=== PATIENT | female | born 1985 | race Hispanic/Latino ===

== ENCOUNTER 2017-12-10 19:18 | Emergency (ER) | payer SELFPAY ==
[2011-09-27 08:01] VITALS: BP 114/65
[2017-12-10] MEDS ORDERED: ACETAMINOPHEN 500 MG TAB ONE (20:56)
[2017-12-10 21:01] LABS: Urine Amorphous Sediment 1+ /HPF (NONE SEEN); Urine Bacteria 20-50 /HPF (<20); Urine Culture Reflex Order NOT NEEDED; Urine Mucus 1+ /HPF (NONE SEEN)
[2017-12-10 21:02] LABS: Urine Coarse Granular Casts 0-5 /LPF (NONE SEEN)
[2017-12-10 21:02] LABS: Urine Blood TRACE (NEG); Urine Glucose NEGATIVE (NEG); Urine Protein NEGATIVE (NEG); Urine pH 6.5 (5.0-7.0)
--- NOTE | 2017-12-10 21:09 | RAD REPORT ---
EXAM DESCRIPTION: CT - Head Brain Wo Cont - 12/10/2017 8:43 pm CLINICAL HISTORY: Headache, fever COMPARISON: None. TECHNIQUE: Axial 5 mm thick images of the head were obtained without IV contrast. All CT scans are performed using dose optimization technique as appropriate and may include automated exposure control or mA/KV adjustment according to patient size. FINDINGS: No intracranial hemorrhage, mass, edema or shift of mid-line structures. No acute infarcti on changes seen. No abnormal extra-axial fluid collections. Ventricles are normal. Mastoid air cells and visualized portions of the paranasal sinuses are clear. No acute bony findings. IMPRESSION: Negative non-contrast CT head examination.
[2017-12-10] MEDS ORDERED: KETOROLAC 30 MG/ML INJ ONE (21:50)
--- NOTE | 2017-12-10 23:01 | EDPHYS ---
Physician Documentation [facility] Name: Eleonora Cunningham Age: 32 yrs Sex: Female : 1985 Arrival Date: 12/10/2017 Time: 19:26 Bed 15 Private MD: ED Physician Will Arias HPI: 12/10 23:00 This 32 yrs old Female presents to ER via Ambulatory with complaints of Fever, pm1 Headache. 23:00 Onset: The symptoms/episode began/occurred 3 day(s) ago. pm1 23:00 Modifying factors: there are no obvious modifying factors. Associated signs and pm1 symptoms: Pertinent positives: headache, Burning/Warmth with urination, frequency, Pertinent negatives: abdominal pain, backache, nausea, skin rash, shortness of breath, vomiting. The patient has not recently seen a physician. 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 - Social history:: Smoking status: Patient/guardian denies using tobacco. - Ebola Screening: : Patient denies travel to an Ebola-affected area in the 21 days before illness onset. ROS: 23:00 Eyes: Negative for injury, pain, redness, and discharge, ENT: Negative for injury, pm1 pain, and discharge, Neck: Negative for injury, pain, and swelling, Cardiovascular: Negative for chest pain, palpitations, and edema, Respiratory: Negative for shortness of breath, cough, wheezing, and pleuritic chest pain, Abdomen/GI: Negative for abdominal pain, nausea, vomiting, diarrhea, and constipation, Back: Negative for injury and pain. 23:00 MS/Extremity: Negative for injury and deformity, Skin: Negative for injury, rash, and discoloration, Neuro: Negative for headache, weakness, numbness, tingling, and seizure. 23:00 Constitutional: Positive for fever, Negative for poor PO intake. 23:00 : Positive for urinary frequency, burning with urination, Negative for flank pain. Exam: 23:00 Constitutional: This is a well developed, well nourished patient who is awake, alert, pm1 and in no acute distress. Head/Face: Normocephalic, atraumatic. Eyes: Pupils equal round and reactive to light, extra-ocular motions intact. Lids and lashes normal. Conjunctiva and sclera are non-icteric and not injected. Cornea within normal limits. Periorbital areas with no swelling, redness, or edema. ENT: Nares patent. No nasal discharge, no septal abnormalities noted. Tympanic membranes are normal and external auditory canals are clear. Oropharynx with no redness, swelling, or masses, exudates, or evidence of obstruction, uvula midline. Mucous membranes moist. Neck: Trachea midline, no thyromegaly or masses palpated, and no cervical lymphadenopathy. Supple, full range of motion without nuchal rigidity, or vertebral point tenderness. No Meningismus. Chest/axilla: Normal chest wall appearance and motion. Nontender with no deformity. No lesions are appreciated. Cardiovascular: Regular rate and rhythm with a normal S1 and S2. No gallops, murmurs, or rubs. Normal PMI, no JVD. No pulse deficits. Respiratory: Lungs have equal breath sounds bilaterally, clear to auscultation and percussion. No rales, rhonchi or wheezes noted. No increased work of breathing, no retractions or nasal flaring. Abdomen/GI: Soft, non-tender, with normal bowel sounds. No distension or tympany. No guarding or rebound. No evidence of tenderness throughout. Back: No spinal tenderness. No costovertebral tenderness. Full range of motion. Skin: Warm, dry with normal turgor. Normal color with no rashes, no lesions, and no evidence of cellulitis. MS/ Extremity: Pulses equal, no cyanosis. Neurovascular intact. Full, normal range of motion. 23:00 Neuro: Orientation: is normal, Memory: is normal, Motor: moves all fours, strength is normal, strength is 5/5 in all extremities, Sensation: is normal, no obvious gross deficits, Gait: is steady, at a normal pace, without difficulty. Vital Signs: 19:35 BP 125 / 77; Pulse 122; Resp 20; Temp 99.3(TE); Pulse Ox 100% on R/A; Weight 88.9 kg aj1 (R); Height 4 ft. 11 in. (149.86 cm); Pain 10/10; 20:52 BP 118 / 76; Pulse 113; Resp 20; Temp 102.7; Pulse Ox 100% on R/A; oe 21:41 BP 102 / 70; Pulse 111; Resp 18; Temp 100.8(O); Pulse Ox 100% on R/A; Pain 6/10; ak1 22:31 BP 100 / 58; Pulse 99; Resp 18; Temp 99.3(O); Pulse Ox 98% on R/A; Pain 4/10; ak1 19:35 Body Mass Index 39.59 (88.90 kg, 149.86 cm) aj1 NIH Stroke Scale Scores: 20:21 NIHSS Score: 0 ak1 MDM: 19:56 Patient medically screened. pm1 22:58 Data reviewed: vital signs. Data interpreted: Pulse oximetry: on room air is 98 %. pm1 Interpretation: normal. Counseling: I had a detailed discussion with the patient and/or guardian regarding: the historical points, exam findings, and any diagnostic results supporting the discharge/admit diagnosis, lab results, radiology results, the need for outpatient follow up, to return to the emergency department if symptoms worsen or persist or if there are any questions or concerns that arise at home. 12/10 20:24 Order name: Urine Dipstick--Ancillary (enter results); Complete Time: 21:47 12/10 20:24 Order name: Urine --Ancillary (enter results); Complete Time: 21:47 12/10 20:24 Order name: Urine Microscopic Only; Complete Time: 21:47 [facility] 12/10 20:24 Order name: Urine Culture [facility] 12/10 20:32 Order name: CT Head Brain wo Cont; Complete Time: 21:47 pm1 Administered Medications: 20:58 Drug: Tylenol 1000 mg Route: PO; ak1 21:39 Follow up: Response: No adverse reaction ak1 21:53 Drug: TORadol 60 mg Route: IM; Site: right gluteus; ak1 22:22 Follow up: Response: No adverse reaction ak1 23:10 Drug: Rocephin (cefTRIAXone) 1 grams Route: IM; Site: left gluteus; ak1 23:17 Follow up: Response: No adverse reaction ak1 Point of Care Testin:33 No glucose ordered ak1 Ranges: Critical Glucose Levels:Adult <50 mg/dl or >400 mg/dl <40 mg/dl or >180 mg/dl Disposition: 12/11 15:38 Co-signature as Attending Physician, Will Arias MD I agree with the assessment and olu plan of care. Chart complete. Disposition: 12/10/17 23:01 Discharged to Home. Impression: Headache, Urinary tract infection, site not specified. - Condition is Stable. - Discharge Instructions: General Headache Without Cause, Urinary Tract Infection. - Prescriptions for Tylenol- Codeine #3 300-30 mg Oral Tablet - take 2 tablets by ORAL route every 6 hours As needed; 20 tablet. Bactrim DS 800- 160 mg Oral Tablet - take 1 tablet by ORAL route every 12 hours for 10 days; 20 tablet. - Medication Reconciliation Form, Thank You Letter, Antibiotic Education, Prescription Opioid Use form. - Follow up: Emergency Department; When: As needed; Reason: Worsening of condition. Follow up: Private Physician; When: 2 - 3 days; Reason: Recheck today's complaints, Continuance of care, Re-evaluation by your physician. - Problem is new. - Symptoms have improved. NIH Stroke Scale - NIH Stroke Score Date: 12/10/2017 Time: 20:21 Total Score = 0 1a. Level of Consciousness (LOC) - 0(Alert) 1b. Level of Consciousness (LOC) (Year \T\ Age) - 0(Both) 1c. LOC Commands (Open \T\ Closes Eyes/Bid Writer) - 0(Both) 2. Best Gaze (Lateral Gaze Paresis) - 0(Normal) 3. Visual Field Loss - 0(No visual loss) 4. Facial Palsy - 0(Normal) 5a. Left Arm: Motor (10-second hold) - 0(No drift) 5b. Right Arm: Motor (10-second hold) - 0(No drift) 6a. Left Leg: Motor (5-second hold - always test supine) - 0(No drift) 6b. Right Leg: Motor (5-second hold - always test supine) - 0(No drift) 7. Limb Ataxia (finger/nose \T\ heel/paulino - test with eyes open) - 0(Absent) 8. Sensory Loss (pinprick arms/legs/face) - 0(Normal) 9. Best Language: Aphasia (description/naming/reading) - 0(No aphasia) 10. Dysarthria (speech clarity - read or repeat words) - 0(Normal) 11. Extinction and Inattention (visual/tactile/auditory/spatial/personal) - 0(No abnormality) Initials: ak1 Signatures: Dispatcher [employer] EDRatna Carrasco RN RN aj1 Will Arias MD MD cha Krenek, Amber RN RN ak1 Freddie Oconnell, TRAFFIC CHIEF TRAFFIC CHIEF pm1 Corrections: (The following items were deleted from the chart) 12/10 23:31 23:01 12/10/2017 23:01 Discharged to Home. Impression: Headache; Urinary tract ak1 infection, site not specified. Condition is Stable. Forms are Medication Reconciliation Form, Thank You Letter, Antibiotic Education, Prescription Opioid Use. Follow up: Emergency Department; When: As needed; Reason: Worsening of condition. Follow up: Private Physician; When: 2 - 3 days; Reason: Recheck today's complaints, Continuance of care, Re-evaluation by your physician. Problem is new. Symptoms have improved. pm1
--- NOTE | 2017-12-10 23:01 | ER ---
Nurse's Notes [facility] Name: Eleonora Cunningham Age: 32 yrs Sex: Female : 1985 Arrival Date: 12/10/2017 Time: 19:26 Bed 15 Private MD: Diagnosis: Headache;Urinary tract infection, site not specified Presentation: 12/10 19:30 Presenting complaint: Patient states: "I've been having a headache and fever since aj1 Friday. Its hurting really bad behind my eyes" Denies cough, congestion, diarrhea. Reports nausea, vomiting. Transition of care: patient was not received from another setting of care. 19:30 Method Of Arrival: Ambulatory aj1 19:34 Onset of symptoms was December 06, 2017. Risk Assessment: Do you want to hurt yourself or aj1 someone else? Patient reports no desire to harm self or others. Initial Sepsis Screen: Does the patient meet any 2 criteria? No. Patient's initial sepsis screen is negative. Does the patient have a suspected source of infection? No. Patient's initial sepsis screen is negative. Care prior to arrival: None. 19:34 Acuity: VALENTIN 3 aj1 20:23 No acute neurological deficit is noted. Pre-hospital glucose is not applicable to this ak1 patient. Triage Assessment: 19:35 The onset of the patients symptoms was December 06, 2017 at 00:00. General: Appears in no aj1 apparent distress. uncomfortable, Behavior is calm, cooperative, appropriate for age. Pain: Complains of pain in top of head, right eye, left eye, right muslim and left muslim Pain does not radiate. Pain currently is 10 out of 10 on a pain scale. Quality of pain is described as stabbing, Pain began 2-3 days ago. Is continuous. Neuro: Level of Consciousness is awake, alert, obeys commands, Oriented to person, place, time, situation, Moves all extremities. Full function Gait is steady, Speech is normal, Facial symmetry appears normal, Reports dizziness, headache. Respiratory: Airway is patent Respiratory effort is even, unlabored, Respiratory pattern is regular, symmetrical. Derm: Skin is pink, warm \\T\\ dry. normal. 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 Patient has no stroke like symptoms aj1 Historical: - Allergies: 19:35 No Known Allergies; aj1 - Home Meds: 19:35 None [Active]; aj1 - PMHx: 19:35 Asthma; Kidney stones; aj1 - PSHx: 19:35 ; Tonsillectomy; aj1 - Immunization history:: Flu vaccine is not up to date. - Social history:: Smoking status: Patient/guardian denies using tobacco. - Ebola Screening: : Patient denies travel to an Ebola-affected area in the 21 days before illness onset. Screenin:21 Abuse screen: Denies threats or abuse. Denies injuries from another. Nutritional ak1 screening: No deficits noted. Tuberculosis screening: No symptoms or risk factors identified. Fall Risk None identified. Assessment: 20:21 Patient has been NPO before screening. The patient is alert, and able to follow ak1 commands. The patient does not exhibit slurred or garbled speech. The patient is not exhibiting difficulty speaking. The patient does not exhibit difficulty understanding words. The patient is able to swallow own secretions with no drooling or need for suction. Patient tolerated one teaspoon of water. No drooling, immediate coughing, gurgling, or clearing of the throat was noted. The patient tolerated 90mL of water. No drooling, immediate coughing, gurgling, or clearing of the throat was noted. The patient passed the bedside swallow screening. Oral medications may be given as ordered. Contact Physician for further diet orders. Provider notified of bedside swallow screening results: Freddie Oconnell HYDRO GENERATION SUPERVISOR. General: Appears in no apparent distress. Behavior is calm, cooperative. Pain: Complains of pain in headache. Neuro: Level of Consciousness is awake, alert, obeys commands, Oriented to person, place, time, situation, Special Weapons And Tactics Officer are equal bilaterally Moves all extremities. Gait is steady, Speech is normal, Facial symmetry appears normal, Pupils are PERRLA. Cardiovascular: No deficits noted. Respiratory: No deficits noted. GI: No signs and/or symptoms were reported involving the gastrointestinal system. : No signs and/or symptoms were reported regarding the genitourinary system. EENT: No signs and/or symptoms were reported regarding the EENT system. EENT: No signs and/or symptoms were reported regarding the EENT system. Derm: No signs and/or symptoms reported regarding the dermatologic system. Musculoskeletal: No signs and/or symptoms reported regarding the musculoskeletal system. 22:31 Reassessment: Patient appears in no apparent distress at this time. Patient is alert, ak1 oriented x 3, equal unlabored respirations, skin warm/dry/pink. Patient states feeling better. Patient states symptoms have improved. ERP notified of pt pain improved. . 22:34 T-PA (Activase) Screening: Contraindications: Other: No TPA needed, no stroke s/s. ak1 23:17 Reassessment: Patient appears in no apparent distress at this time. Patient is alert, ak1 oriented x 3, equal unlabored respirations, skin warm/dry/pink. Patient states feeling better. Patient states symptoms have improved. Vital Signs: 19:35 BP 125 / 77; Pulse 122; Resp 20; Temp 99.3(TE); Pulse Ox 100% on R/A; Weight 88.9 kg aj1 (R); Height 4 ft. 11 in. (149.86 cm); Pain 10/10; 20:52 BP 118 / 76; Pulse 113; Resp 20; Temp 102.7; Pulse Ox 100% on R/A; oe 21:41 BP 102 / 70; Pulse 111; Resp 18; Temp 100.8(O); Pulse Ox 100% on R/A; Pain 6/10; ak1 22:31 BP 100 / 58; Pulse 99; Resp 18; Temp 99.3(O); Pulse Ox 98% on R/A; Pain 4/10; ak1 19:35 Body Mass Index 39.59 (88.90 kg, 149.86 cm) aj1 NIH Stroke Scale Scores: 20:21 NIHSS Score: 0 ak1 ED Course: 19:26 Patient arrived in ED. es 19:34 Triage completed. aj1 19:35 Arm band placed on Patient placed in waiting room, Patient notified of wait time. aj1 19:55 Freddie Oconnell NP is PHCP. pm1 19:55 Will Arias MD is Attending Physician. pm1 20:21 Xuan Moreno, RN is Primary Nurse. ak1 20:21 Patient has correct armband on for positive identification. Bed in low position. Call ak1 light in reach. Side rails up X 1. Adult w/ patient. Pulse ox on. NIBP on. 20:[address] via wheelchair. kw1 20:43 CT completed. Patient tolerated procedure well. Patient moved back from CT. nj 20:43 CT Head Brain wo Cont In Process Unspecified. EDMS 22:34 No provider procedures requiring assistance completed. ak1 23:16 Patient did not have IV access during this emergency room visit. ak1 Administered Medications: 20:58 Drug: Tylenol 1000 mg Route: PO; ak1 21:39 Follow up: Response: No adverse reaction ak1 21:53 Drug: TORadol 60 mg Route: IM; Site: right gluteus; ak1 22:22 Follow up: Response: No adverse reaction ak1 23:10 Drug: Rocephin (cefTRIAXone) 1 grams Route: IM; Site: left gluteus; ak1 23:17 Follow up: Response: No adverse reaction ak1 Point of Care Testin:33 No glucose ordered ak1 Ranges: Outcome: 23:01 Discharge ordered by . pm1 23:16 Discharged to home ambulatory, with family. ak1 23:16 Condition: improved 23:16 Discharge instructions given to patient, Instructed on discharge instructions, follow up and referral plans. no drinking with medication, no driving heavy equipment, medication usage, safe sex practices, Demonstrated understanding of instructions, follow-up care, medications, Prescriptions given X 2. 23:31 Patient left the ED. ak1 NIH Stroke Scale - NIH Stroke Score Date: 12/10/2017 Time: 20:21 Total Score = 0 1a. Level of Consciousness (LOC) - 0(Alert) 1b. Level of Consciousness (LOC) (Year \\T\\ Age) - 0(Both) 1c. LOC Commands (Open \\T\\ Closes Eyes/Nuclear Equipment Operator) - 0(Both) 2. Best Gaze (Lateral Gaze Paresis) - 0(Normal) 3. Visual Field Loss - 0(No visual loss) 4. Facial Palsy - 0(Normal) 5a. Left Arm: Motor (10-second hold) - 0(No drift) 5b. Right Arm: Motor (10-second hold) - 0(No drift) 6a. Left Leg: Motor (5-second hold - always test supine) - 0(No drift) 6b. Right Leg: Motor (5-second hold - always test supine) - 0(No drift) 7. Limb Ataxia (finger/nose \\T\\ heel/paulino - test with eyes open) - 0(Absent) 8. Sensory Loss (pinprick arms/legs/face) - 0(Normal) 9. Best Language: Aphasia (description/naming/reading) - 0(No aphasia) 10. Dysarthria (speech clarity - read or repeat words) - 0(Normal) 11. Extinction and Inattention (visual/tactile/auditory/spatial/personal) - 0(No abnormality) Initials: akWilliams Addendum: 12/14/2017 07:25 Addendum: Culture Results: Positive urine culture. No further action required. iw Bacteria sensitive to prescribed antibiotic. Signatures: Dispatcher [employer] EDRatna Carrasco RN RN aj1 Kelly Williamson Irene, RN RN iw Xuan Moreno RN RN ak1 Freddie Oconnell, AVIS HYDRO GENERATION SUPERVISOR pm1 Matthias Sorenson [place] oe Wilhelm, Kimberly kw1
[2017-12-10] MEDS ORDERED: CEFTRIAXONE 1000 MG/VIAL ONE (23:08)
[2017-12-10] MEDS ORDERED: WATER FOR INJ,STERILE 10 ML ONE (23:08)
== END 2017-12-10 23:31 | disposition home or self-care (01) ==
LOC: ER 19:18
DX: N39.0 Urinary tract infection, site not specified (principal); J45.909 Unspecified asthma, uncomplicated
CPT/HCPCS: 70450; 81003; 81015; 81025; 87077; 87086; 87088; 87186; 96372; 99284

== ENCOUNTER 2018-04-07 13:23 | Emergency (ER) | payer SELFPAY ==
[2018-04-07] MEDS ORDERED: ACETAMINOPHEN 500 MG TAB ONE (13:43)
[2018-04-07] MEDS ORDERED: predniSONE 20 MG TAB ONE (13:46)
[2018-04-07] MEDS ORDERED: MAGNESIUM SULFATE 1 gm IVPB 1 GM/100 ML BAG IV ONE (13:46)
[2018-04-07] MEDS ORDERED: NA CHLORIDE 0.9% 1,000 ML ONE (13:46)
[2018-04-07 14:26] LABS: BUN Blood Urea Nitrogen 6 mg/dL (7-18); Bicarbonate 26 mmol/L (21-32); Glucose Level 146 mg/dL (74-106); Magnesium 2.2 mg/dL (1.8-2.4); Potassium 3.2 mmol/L (3.5-5.1); Sodium Level 139 mmol/L (136-145)
[2018-04-07 15:33] LABS: Absolute Lymphocytes (CBC) 1.6 K/uL (0.7-4.9); Basophils % 0.1 % (0-1.3); Eosinophils % 0.9 % (0-4.4); Hematocrit 34.8 % (36.0-45.0); Lymphocytes % 12.4 % (15.3-44.8); MCH 21.6 pg (27.0-35.0); MCV 67.7 fL (80-100); MPV 7.9 fL (7.6-11.3); Monocytes % 8.2 % (3.3-12.3); RBC Red Blood Cell Count 5.14 M/uL (3.86-4.86)
[2018-04-07 15:35] LABS: Blood Morphology Comment NOTED (NOT SEEN); Hypochromasia 1+; Platelet Estimate ADEQ; Urine White Blood Cell Casts OK
--- NOTE | 2018-04-07 15:46 | RAD REPORT ---
EXAM DESCRIPTION: Sandra Single View04/07/2018 3:02 pm CLINICAL HISTORY: Cough COMPARISON: 2012 FINDINGS: Interstitial pattern appears mildly prominent. . The heart is normal size IMPRESSION: Mild prominence of the pulmonary interstitial pattern may indicate mild pneumonitis/aty pical pneumonia
[2018-04-07] MEDS ORDERED: POTASSIUM 25 MEQ EFFERV TAB ONE (15:49)
--- NOTE | 2018-04-07 16:27 | ER ---
Nurse's Notes [facility] Name: Eleonora Cunningham Age: 32 yrs Sex: Female : 1985 Arrival Date: 04/07/2018 Time: 13:26 Bed 28 Private MD: None, None Diagnosis: Unspecified asthma with (acute) exacerbation;Acute upper respiratory infection, unspecified Presentation: 04/07 13:32 Presenting complaint: Patient states: cough, SOB, Headache, sore throat, fevers, ch started on Friday. I feel like I cannot breathe. Transition of care: patient was not received from another setting of care. Onset of symptoms was April 03, 2018. Risk Assessment: Do you want to hurt yourself or someone else? Patient reports no desire to harm self or others. Initial Sepsis Screen: Does the patient meet any 2 criteria? No. Patient's initial sepsis screen is negative. Does the patient have a suspected source of infection? No. Patient's initial sepsis screen is negative. Care prior to arrival: None. 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 - Social history:: Smoking status: Patient/guardian denies using tobacco. - Ebola Screening: : Patient negative for fever greater than or equal to 101.5 degrees Fahrenheit, and additional compatible Ebola Virus Disease symptoms Patient denies exposure to infectious person Patient denies travel to an Ebola-affected area in the 21 days before illness onset No symptoms or risks identified at this time. Screenin:07 Abuse screen: Denies threats or abuse. Nutritional screening: No deficits noted. la1 Tuberculosis screening: No symptoms or risk factors identified. Fall Risk None identified. Assessment: 14:06 General: Appears uncomfortable, Behavior is cooperative. Pain: Complains of pain in la1 headache. Neuro: Level of Consciousness is awake, alert, obeys commands, Oriented to person, place, time, situation. Cardiovascular: Capillary refill < 3 seconds Patient's skin is warm and dry. Respiratory: Airway is patent Trachea midline Respiratory effort is even, labored, Respiratory pattern is regular, tachypnea Breath sounds with wheezes bilaterally. GI: No signs and/or symptoms were reported involving the gastrointestinal system. : No signs and/or symptoms were reported regarding the genitourinary system. 14:15 Reassessment: Patient and/or family updated on plan of care and expected duration. Pain aj1 level reassessed. General: Appears uncomfortable, Behavior is calm, cooperative. Neuro: Level of Consciousness is awake, alert, obeys commands. Cardiovascular: Heart tones S1 S2 present Patient's skin is warm and dry. Respiratory: Airway is patent Respiratory effort is even, labored, Respiratory pattern is regular, tachypnea Breath sounds with wheezes bilaterally. GI: No signs and/or symptoms were reported involving the gastrointestinal system. : No signs and/or symptoms were reported regarding the genitourinary system. EENT: No signs and/or symptoms were reported regarding the EENT system. Derm: No signs and/or symptoms reported regarding the dermatologic system. Skin is pink, warm \T\ dry. normal. Musculoskeletal: No signs and/or symptoms reported regarding the musculoskeletal system. Circulation, motion, and sensation intact. 15:15 Reassessment: Patient appears in no apparent distress at this time. No changes from aj1 previously documented assessment. Patient and/or family updated on plan of care and expected duration. Pain level reassessed. Patient is alert, oriented x 3, equal unlabored respirations, skin warm/dry/pink. 16:03 Reassessment: Patient appears in no apparent distress at this time. No changes from aj1 previously documented assessment. Patient and/or family updated on plan of care and expected duration. Pain level reassessed. Patient is alert, oriented x 3, equal unlabored respirations, skin warm/dry/pink. 16:45 Reassessment: Patient states that she feels like she is getting short of breath again. aj1 Patient is concerned over being discharged. Breath sound with wheezes bilaterally. Notified EBEN Liu of patient complaint. Order received . 16:55 Reassessment: Upon re-entering patient's room patient appears anxious, tachypnic, aj1 states that she feels like she can't breath. Breath sound with wheezes bilaterally. Started breathing treatment, and coached patient through deep breathing techniques. Respiratory rate 24 prior to leaving the room. Patient with call eubanks in hand, instructed to notify staff if shortness of breath returnes. 17:40 Reassessment: EBEN Liu at bedside. aj1 17:51 Reassessment: Patient appears in no apparent distress at this time. No changes from aj1 previously documented assessment. Patient and/or family updated on plan of care and expected duration. Pain level reassessed. Patient is alert, oriented x 3, equal unlabored respirations, skin warm/dry/pink. Patient states that she is feeling better and she is ready to be discharged. Vital Signs: 13:34 BP 124 / 70; Pulse 118; Resp 32; Temp 100.7; Pulse Ox 100% on R/A; Weight 91.63 kg; ch Height 4 ft. 11 in. (149.86 cm); Pain 8/10; 14:15 BP 124 / 70; Pulse 107; Resp 28; Pulse Ox 100% on 2 lpm NC; aj1 15:15 BP 122 / 68; Pulse 99; Resp 20; Temp 99.7(O); Pulse Ox 100% on 2 lpm NC; aj1 16:03 BP 111 / 69; Pulse 100; Resp 20; Pulse Ox 100% on 2 lpm NC; aj1 17:03 BP 107 / 52; Pulse 87; Resp 24; Pulse Ox 100% on Nebulizer Mask; aj1 13:34 Body Mass Index 40.80 (91.63 kg, 149.86 cm) ED Course: 13:26 Patient arrived in ED. mr 13:26 None, None is Private Physician. mr 13:32 Will Hicks PA is PHCP. la1 13:32 Will Arias MD is Attending Physician. la1 13:33 Triage completed. ch 13:34 Arm band placed on left wrist. Patient placed in an exam room, on a stretcher, report ch given to Shailesh De Jesus 13:45 Shailesh Epstein, RN is Primary Nurse. la1 13:50 Initial lab(s) drawn, by ED staff, sent to lab. First set of blood cultures drawn by ED jp3 staff, Second set of blood cultures drawn by ED staff. 13:58 EKG done, by claim technician. reviewed by Will TREADWELL. 3 14:07 No provider procedures requiring assistance completed. Inserted saline lock: 20 gauge la1 in right antecubital area, using aseptic technique. Blood collected. 14:30 Patient has correct armband on for positive identification. aj1 14:32 Feliciano Schofield MD is Attending Physician. cp 15:00 Throat Culture Sent. aj1 15:02 XRAY Chest (1 view) In Process Unspecified. EDMS 17:48 Urine collected: clean catch specimen, clear, ashley colored. jp3 17:53 IV discontinued, intact, bleeding controlled, No redness/swelling at site. Pressure aj1 dressing applied. 17:59 Primary Nurse role handed off by Shailesh Epstein RN hb Administered Medications: 14:07 Drug: Albuterol - atroVENT (3:1) (2.5 mg - 0.5 mg) 3 ml Route: Nebulizer; la1 14:30 Follow up: Response: No adverse reaction aj1 15:01 Follow up: Response: No adverse reaction aj1 14:07 Drug: Tylenol 1000 mg Route: PO; la1 15:10 Follow up: Response: No adverse reaction aj1 14:07 Drug: NS 0.9% 1000 ml Route: IV; Rate: 1 bolus; Site: right antecubital; la1 15:00 Follow up: IV Status: Completed infusion; IV Intake: 1000ml aj1 14:07 Drug: Magnesium Sulfate 1 grams Route: IVPB; Infused Over: 1 hrs; Site: right la1 antecubital; 15:07 Follow up: IV Status: Completed infusion; IV Intake: 100ml aj1 14:07 Drug: predniSONE 60 mg Route: PO; la1 15:00 Follow up: Response: No adverse reaction aj1 15:51 Drug: Potassium Effervescent Tablet 50 mEq Route: PO; aj1 16:50 Follow up: Response: No adverse reaction aj1 17:01 Drug: DuoNeb (3:1) (2.5 mg - 0.5 mg) 3 ml Route: Nebulizer; aj1 17:58 Follow up: Response: No adverse reaction aj1 Intake: 15:00 IV: 1000ml; Total: 1000ml. aj1 15:07 IV: 100ml; Total: 1100ml. aj1 Outcome: 16:26 Discharge ordered by . cp 17:53 Discharged to home ambulatory. aj1 17:53 Condition: good 17:53 Discharge instructions given to patient, Instructed on discharge instructions, follow up and referral plans. medication usage, Demonstrated understanding of instructions, follow-up care, medications, Prescriptions given X 4. 17:59 Patient left the ED. aj1 18:01 Patient left the ED. Signatures: Dispatcher [employer] EDMS Yamile Good, Ratna Rod RN, ch, RN RN aj1 Verenice Yan, Shailesh RN RN la1 Will Hicks PA PA cp Baxter, Heather, RN RN Jodi Franklin sm3 Shahzad Mckeon jp3
--- NOTE | 2018-04-07 16:27 | EDPHYS ---
Physician Documentation [facility] Name: Eleonora Cunningham Age: 32 yrs Sex: Female : 1985 Arrival Date: 04/07/2018 Time: 13:26 Bed 28 Private MD: None, None ED Physician Feliciano Schofield HPI: 04/07 13:45 This 32 yrs old Female presents to ER via Ambulatory with complaints of Asthma cp Exacerbation, Headache, Fever. 13:45 The patient or guardian reports cough, that is intermittent. cp 13:45 Onset: The symptoms/episode began/occurred last week. Associated signs and symptoms: cp Pertinent positives: fever, sore throat, headache, Pertinent negatives: chest pain, diarrhea, vomiting. Severity of symptoms: in the emergency department the symptoms are unchanged despite home interventions. 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 - Social history:: Smoking status: Patient/guardian denies using tobacco. - Ebola Screening: : Patient negative for fever greater than or equal to 101.5 degrees Fahrenheit, and additional compatible Ebola Virus Disease symptoms Patient denies exposure to infectious person Patient denies travel to an Ebola-affected area in the 21 days before illness onset No symptoms or risks identified at this time. ROS: 13:50 Constitutional: Positive for fever, Negative for body aches, chills, poor PO intake. cp 13:50 Eyes: Negative for injury, pain, redness, and discharge. cp 13:50 ENT: Positive for sore throat, Negative for drainage from ear(s), ear pain, sinus pain, cp difficulty swallowing, difficulty handling secretions. 13:50 Cardiovascular: Negative for chest pain, edema. 13:50 Respiratory: Positive for cough, shortness of breath, wheezing. 13:50 Abdomen/GI: Negative for abdominal pain, nausea, vomiting, and diarrhea, anorexia. 13:50 : Negative for urinary symptoms. 13:50 Skin: Negative for cellulitis, rash. 13:50 Neuro: Positive for headache, Negative for altered mental status, weakness. 13:50 All other systems are negative. Exam: 13:55 ECG was reviewed by the Attending Physician. cp 13:58 Constitutional: The patient appears in no acute distress, alert, awake, cp non-diaphoretic, non-toxic, well developed, well nourished, febrile. 13:58 Head/Face: Normocephalic, atraumatic. Eyes: Pupils equal round and reactive to light, cp extra-ocular motions intact. Lids and lashes normal. Conjunctiva and sclera are non-icteric and not injected. Cornea within normal limits. Periorbital areas with no swelling, redness, or edema. ENT: Nares patent. No nasal discharge, no septal abnormalities noted. Tympanic membranes are normal and external auditory canals are clear. Oropharynx with no redness, swelling, or masses, exudates, or evidence of obstruction, uvula midline. Mucous membranes moist. 13:58 Neck: ROM/movement: is normal, is supple, without pain, no range of motions limitations, no meningismus, no nuchal rigidity, Lymph nodes: no appreciated lymphadenopathy. 13:58 Chest/axilla: Inspection: normal, Palpation: is normal, no crepitus, no tenderness. 13:58 Cardiovascular: Rate: tachycardic, Rhythm: regular, Pulses: Pulses are 2+ in right radial artery and left radial artery. Edema: is not appreciated, JVD: is not appreciated. 13:58 Respiratory: the patient does not display signs of respiratory distress, Respirations: labored breathing, that is mild, intercostal retractions, are absent, splinting, is not noted, tachypnea, that is mild, Breath sounds: stridor, is not appreciated, + upper airway congestion. wheezing: that is mild, is heard diffusely. 13:58 Abdomen/GI: Inspection: abdomen appears normal, Bowel sounds: active, all quadrants, Palpation: abdomen is soft and non-tender, in all quadrants, rebound tenderness, is not appreciated, voluntary guarding, is not appreciated, involuntary guarding, is not appreciated. 13:58 Back: pain, is absent, ROM is normal. 13:58 Skin: cellulitis, is not appreciated, no rash present. 13:58 Neuro: Orientation: to person, place \T\ time. Mentation: is normal, Cerebellar function: is grossly normal, Motor: moves all fours, strength is normal, Sensation: no obvious gross deficits. Vital Signs: 13:34 BP 124 / 70; Pulse 118; Resp 32; Temp 100.7; Pulse Ox 100% on R/A; Weight 91.63 kg; ch Height 4 ft. 11 in. (149.86 cm); Pain 8/10; 14:15 BP 124 / 70; Pulse 107; Resp 28; Pulse Ox 100% on 2 lpm NC; aj1 15:15 BP 122 / 68; Pulse 99; Resp 20; Temp 99.7(O); Pulse Ox 100% on 2 lpm NC; aj1 16:03 BP 111 / 69; Pulse 100; Resp 20; Pulse Ox 100% on 2 lpm NC; aj1 17:03 BP 107 / 52; Pulse 87; Resp 24; Pulse Ox 100% on Nebulizer Mask; aj1 13:34 Body Mass Index 40.80 (91.63 kg, 149.86 cm) ch MDM: 13:34 Patient medically screened. olu 14:00 Differential diagnosis: bronchitis, flu, strep throat, pneumonia, asthma exacerbation. cp 16:25 Data reviewed: vital signs, nurses notes, lab test result(s), EKG, radiologic studies, cp plain films. 16:25 Test interpretation: by ED physician or midlevel provider: ECG, plain radiologic cp studies. 17:55 Response to treatment: the patient's symptoms have markedly improved after treatment, cp VSS. Cough, fever, SOB markedly improved. Will discharge to home for continued monitoring. 04/07 13:38 Order name: Blood Culture Adult (2) cp 04/07 13:38 Order name: Influenza Screen (a \T\ B); Complete Time: 14:55 cp 04/07 14:55 Interpretation: Reviewed. cp 04/07 13:38 Order name: CBC with Diff; Complete Time: 15:44 cp 04/07 15:45 Interpretation: Normal except: WBC 12.7; RBC 5.14; HGB 11.1; HCT 34.8; MCV 67.7; MCH cp 21.6; MCHC 31.9; RDW 15.7; LEONIDAS% 78.4; LYM% 12.4; NEUT A 10.0. 04/07 13:38 Order name: BMP; Complete Time: 14:31 cp 04/07 14:31 Interpretation: Normal except: K 3.2; GLUC 146; BUN 6. cp 04/07 13:38 Order name: Procalcitonin; Complete Time: 14:55 cp 04/07 14:55 Interpretation: Procalcitonin < 0.05; Reviewed. 04/07 13:38 Order name: Magnesium; Complete Time: 14:31 cp 04/07 13:38 Order name: Strep; Complete Time: 14:55 cp 04/07 14:55 Interpretation: Reviewed. 04/07 14:01 Order name: XRAY Chest (1 view); Complete Time: 15:50 cp 04/07 15:50 Interpretation: Report review. 04/07 14:42 Order name: Throat Culture EDNE 04/07 15:34 Order name: CBC Smear Scan; Complete Time: 15:44 EDNE 04/07 18:01 Order name: Urine Dipstick--Ancillary (enter results) 04/07 18:01 Order name: Urine --Ancillary (enter results) 04/07 13:38 Order name: Urine Dipstick-Ancillary (obtain specimen); Complete Time: 17:48 cp 04/07 13:38 Order name: Urine Test (obtain specimen); Complete Time: 17:48 cp 04/07 13:38 Order name: EKG; Complete Time: 13:39 cp 04/07 13:38 Order name: EKG - Nurse/Tech; Complete Time: 14:07 cp 04/07 15:34 Order name: Vital Signs: please update to include temp; Complete Time: 16:00 cp EC:55 Rate is 118 beats/min. Rhythm is regular. WA interval is normal. QRS interval is cp normal. QT interval is normal. Interpreted by me. Reviewed by me. Administered Medications: 14:07 Drug: Albuterol - atroVENT (3:1) (2.5 mg - 0.5 mg) 3 ml Route: Nebulizer; la1 14:30 Follow up: Response: No adverse reaction aj1 15:01 Follow up: Response: No adverse reaction aj1 14:07 Drug: Tylenol 1000 mg Route: PO; la1 15:10 Follow up: Response: No adverse reaction aj1 14:07 Drug: NS 0.9% 1000 ml Route: IV; Rate: 1 bolus; Site: right antecubital; la1 15:00 Follow up: IV Status: Completed infusion; IV Intake: 1000ml aj1 14:07 Drug: Magnesium Sulfate 1 grams Route: IVPB; Infused Over: 1 hrs; Site: right la1 antecubital; 15:07 Follow up: IV Status: Completed infusion; IV Intake: 100ml aj1 14:07 Drug: predniSONE 60 mg Route: PO; la1 15:00 Follow up: Response: No adverse reaction aj1 15:51 Drug: Potassium Effervescent Tablet 50 mEq Route: PO; aj1 16:50 Follow up: Response: No adverse reaction aj1 17:01 Drug: DuoNeb (3:1) (2.5 mg - 0.5 mg) 3 ml Route: Nebulizer; aj1 17:58 Follow up: Response: No adverse reaction aj1 Disposition: 18:55 Co-signature as Attending Physician, Feliciano Schofield MD. rn Disposition: 04/07/18 16:26 Discharged to Home. Impression: Unspecified asthma with (acute) exacerbation, Acute upper respiratory infection, unspecified. - Condition is Stable. - Discharge Instructions: Asthma, Adult, Upper Respiratory Infection, Adult. - Prescriptions for Zithromax Z- Tavon 250 mg Oral Tablet - take 1 tablet by ORAL route as directed for 5 days Day 1 - take two (2) tablets one time. Day 2, 3, 4 , 5 take one (1) tablet once daily.; 6 tablet. Prednisone 20 mg Oral Tablet - take 2 tablet by ORAL route once daily for 5 days; 10 tablet. Albuterol Sulfate 90 mcg/actuation - inhale 1-2 puff by INHALATION route every 4-6 hours; 1 Inhaler. Guaifenesin AC 10- 100 mg/5 mL Oral Liquid - take 10 milliliter by ORAL route every 4 hours As needed; 240 milliliter. - Medication Reconciliation Form, Thank You Letter, Antibiotic Education, Prescription Opioid Use form. - Follow up: Private Physician; When: 2 - 3 days; Reason: Recheck today's complaints. - Problem is new. - Symptoms have improved. Signatures: Dispatcher [employer] EDMS Yamile Good RN RN ch Johnson, Angela, RN RN aj1 Will Arias MD MD cha Nieto, Roman, MD MD rn Attema, Lee, RN RN la1 Will Hicks PA PA cp Baxter, Gwendolyn, RN RN hb Corrections: (The following items were deleted from the chart) 17:59 16:26 04/07/2018 16:26 Discharged to Home. Impression: Unspecified asthma with (acute) aj1 exacerbation; Acute upper respiratory infection, unspecified. Condition is Stable. Forms are Medication Reconciliation Form, Thank You Letter, Antibiotic Education, Prescription Opioid Use. Follow up: Private Physician; When: 2 - 3 days; Reason: Recheck today's complaints. Problem is new. Symptoms have improved. cp 18:01 17:59 04/07/2018 16:26 Discharged to Home. Impression: Unspecified asthma with (acute) hb exacerbation; Acute upper respiratory infection, unspecified. Condition is Stable. Discharge Instructions: Asthma, Adult, Upper Respiratory Infection, Adult. Prescriptions for Zithromax Z-Tavon 250 mg Oral Tablet - take 1 tablet by ORAL route as directed for 5 days Day 1 - take two (2) tablets one time. Day 2, 3, 4 , 5 take one (1) tablet once daily.; 6 tablet, Prednisone 20 mg Oral Tablet - take 2 tablet by ORAL route once daily for 5 days; 10 tablet, Albuterol Sulfate 90 mcg/actuation - inhale 1-2 puff by INHALATION route every 4-6 hours; 1 Inhaler, Guaifenesin AC 10-100 mg/5 mL Oral Liquid - take 10 milliliter by ORAL route every 4 hours As needed; 240 milliliter. and Forms are Medication Reconciliation Form, Thank You Letter, Antibiotic Education, Prescription Opioid Use. Follow up: Private Physician; When: 2 - 3 days; Reason: Recheck today's complaints. Problem is new. Symptoms have improved. aj1
[2018-04-07] MEDS ORDERED: ALBUTEROL 2.5 MG/3 ML NEB SOL ONE (16:58)
[2018-04-07] MEDS ORDERED: IPRATROPIUM BROM 0.5MG/2.5ML ONE (16:58)
[2018-04-07 18:08] LABS: Urine Blood NEGATIVE (NEG); Urine Glucose NEGATIVE (NEG); Urine Protein NEGATIVE (NEG); Urine Specific Gravity 1.015 (1.005-1.030)
[2018-04-07 18:09] VITALS: O2SAT 100
[2018-04-07 18:13] VITALS: TEMP 99.7
[2018-04-07 18:15] VITALS: BP 107/52
--- NOTE | 2018-04-08 07:54 | EKG ---
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
== END 2018-04-07 18:01 | disposition home or self-care (01) ==
LOC: ER 13:23
DX: J45.901 Unspecified asthma with (acute) exacerbation (principal); J06.9 Acute upper respiratory infection, unspecified
CPT/HCPCS: 36415; 71045; 80048; 81003; 81025; 83735; 84145; 85025; 87040; 87070; 87081; 87804; 93005; 94640; 96365; 99284; J3475; J7030; J7512

== ENCOUNTER 2019-02-04 05:00 | Inpatient (IN) | payer OTHER ==
[2019-02-03 15:41] LABS: Absolute Lymphocytes (CBC) 2.3 K/uL (0.7-4.9); Basophils % 0.3 % (0-1.3); Hematocrit 34.4 % (36.0-45.0); Lymphocytes % 19.2 % (15.3-44.8); MPV 8.3 fL (7.6-11.3); RBC Red Blood Cell Count 4.58 M/uL (3.86-4.86)
[2019-02-03 15:48] LABS: Protime INR 0.96
[2019-02-03 15:51] LABS: Urine Appearance CLOUDY; Urine Bilirubin NEGATIVE (NEG); Urine Blood NEGATIVE (NEG); Urine Color YELLOW; Urine Glucose NEGATIVE (NEG); Urine Protein NEGATIVE (NEG); Urine Specific Gravity 1.025 (1.005-1.030); Urine Urobilinogen 0.2 mg/dL (0.2-1.0); Urine pH 6.5 (5.0-7.0)
[2019-02-03 16:00] LABS: Urine Bacteria >50 /HPF (<20); Urine Culture Reflex Order REFLEXED; Urine RBC NONE SEEN /HPF (NONE SEEN)
[2019-02-03 23:12] LABS: RPR (Rapid Plasma Reagin) NON-REACT (NON-REACT)
--- OUTSIDE RECORDS SUMMARY | 2019-02-04 05:02 | XMS REPORT ---
:1985 [facility] [address] Segura [address] [place] [id number] Care Team Providers Name Role Phone Unavailable Unavailable Unavailable Problems This patient has no known problems. Allergies, Adverse Reactions, Alerts This patient has no known allergies or adverse reactions. Medications This patient has no known medications.
[2019-02-04] MEDS ORDERED: Ringers Lactate 1,000 ML IV PRN (05:03)
[2019-02-04] MEDS ORDERED: NA CIT/CITRIC AC 30 ML ORAL UDC PO ONE (05:07)
[2019-02-04] MEDS ORDERED: FAMOTIDINE 20 MG/2 ML VIAL IV ONE (05:08)
[2019-02-04] MEDS ORDERED: CEFAZOLIN/SWI 2gm 2 GM/20 ML SYR ONE (05:44)
[2019-02-04 05:52] VITALS: BMI 44.4
[2019-02-04] MEDS ORDERED: METOCLOPRAMIDE 10 MG/2mL INJ IV SCH (06:00)
[2019-02-04] MEDS ORDERED: Ringers Lactate 1,000 ML IV SCH (06:00)
[2019-02-04] MEDS ORDERED: CEFAZOLIN 2 GM in NA CHLORIDE 0.9% 100 ML IVPB SCH (06:00)
[2019-02-04] MEDS ORDERED: MORPHINE SULFATE/PF 1 MG/ML (10 ML AMP) ONE (06:45)
[2019-02-04] MEDS ORDERED: OXYTOCIN 10 UNIT/ML ML IV ONE ×2 (06:46→08:16)
[2019-02-04] MEDS ORDERED: FENTANYL CITR 250 MCG/5 ML ONE (06:46)
[2019-02-04] MEDS ORDERED: D50W 25 GM/50 ML SYRINGE IV ONE ×2 (06:54→12:11)
[2019-02-04] MEDS ORDERED: Phenylephrine HCl 10 MG/ML 1 ML VIAL ONE (06:55)
[2019-02-04] MEDS ORDERED: METHYLERGONOVINE 0.2MG/ML AMP IM ONE (07:05)
[2019-02-04] MEDS ORDERED: CARBOPROST TROME 250 MCG/ML IM ONE (07:05)
[2019-02-04] MEDS ORDERED: EPHEDRINE SULF 50 MG/ML VIAL ONE (07:13)
[2019-02-04] MEDS ORDERED: NS 0.9% VIAL 10 ML ONE (07:17)
[2019-02-04] MEDS ORDERED: MIDAZOLAM HCL 2 MG/2 ML INJ ONE ×2 (07:58→08:15)
[2019-02-04] MEDS ORDERED: IBUPROFEN 200 MG TAB PO PRN (08:55)
[2019-02-04] MEDS ORDERED: BISACODYL 10 MG RECTAL SUPP RECT PRN (08:55)
[2019-02-04] MEDS ORDERED: KETOROLAC 30 MG/ML INJ IV PRN (08:55)
[2019-02-04] MEDS ORDERED: DIPHENHYDRAMINE 25 MG TAB/CAP PO PRN (08:55)
[2019-02-04] MEDS ORDERED: ONDANSETRON 4 MG/2 ML VIAL IV PRN (08:55)
[2019-02-04] MEDS ORDERED: Oxycodone HCl/Acetaminophen 1 TAB TAB PO PRN (08:55)
[2019-02-04] MEDS ORDERED: KETOROLAC 30 MG/ML INJ IM PRN (08:55)
[2019-02-04] MEDS ORDERED: ONDANSETRON 4 MG (ODT) TAB PO PRN (08:55)
[2019-02-04] MEDS ORDERED: ACETAMINOPHEN 500 MG TAB PO PRN ×2 (08:55)
[2019-02-04] MEDS ORDERED: OXYTOCIN/LR 20 UNIT/1,000 ML BAG IV SCH (09:00)
[2019-02-04] MEDS ORDERED: CEFAZOLIN/SWI 1gm 1 GM/10 ML SYR IV SCH (09:45)
[2019-02-04] MEDS ORDERED: CEFAZOLIN/SWI 2gm 2 GM/20 ML SYR IV SCH (10:30)
[2019-02-04] MEDS ORDERED: Ringers Lactate 2,000 ML IV ONE (12:26)
--- NOTE | 2019-02-04 12:51 | OP ---
Surgeon: Kenan Madsen MD Halftone Operator: Yg Ku M.D. Indications: 33-year-old, 3, para 2, 2 previous C-sections. Patient also noted to be diabet ic during the . Full preoperative counseling concerning procedure and possible complication s including infection, blood loss, anesthetic complications, injury to bladder, bowel, ureter, postop erative complications, clots in legs, pneumonia. The patient knows fully well this does not constitu te all the possible problems that could occur during or following surgery. Spinal block anesthesia b y Dr. Lang. Description Of Procedure: Time-out was performed. After prepping and draping, a Pfannenstiel incisi on was created over previous incision site. The incision was carried to the fascia. There was signi ficant scarring, very dense tissue. Anterior and posterior fascial plane were developed with both bl unt and sharp dissection. Underlying rectus muscle was . Peritoneal defect was encountered and expanded upon. Dense adhesions were noted. Transverse incision was created. A 7 pound 15 ounc e male infant was delivered. First attempt with a Kiwi suction and then application of forceps resul kaye in delivery of the baby. Dr. Lang will sign Apgars. Cord blood specimen was obtained. Placenta was removed manually. Uterus cleared of clot and blood and exteriorized. Cervical os dilated with ring clamp. Uterus closed with 1 chromic 2 layers, then [id number] stitches for complete hemost asis along the suture line. Because of the dense the lower uterine incision adhesions and thin lower uterine segment which was really not assessable, the decision was made to proceed with tubal ligatio n in the patient's best interest. Bilateral tubal was performed, modified Ton. Each tube being kinked in the midportion, triply tied with 2-0 plain. Segment of tube removed and tubal lumen which were exposed were fulgurated. Uterus was replaced in peritoneal cavity. Gutters were cleared of robyn t and blood. Tubal ligation sites were checked and noted to be intact. The rectus muscles were reap proximated using 0 Vicryl, numerous stitches necessary for closure and hemostasis. The fascia was cl osed with 1 PDS running from either angle to the midline. Subcutaneous tissue was closed with 2-0 pl ain, then absorbable corinne and metal corinne. Patient had been given 2 g of Ancef. Tolerated all procedures well, transferred back to her room in good condition. Final Diagnoses: 1.Term intrauterine . 2.Repeat section. 3.Dense adhesions. 4.Thin lower uterine segment, which is almost inaccessible. 5.Spinal block anesthesia. 6.Maternal diabetes. ALAINA/ZHANE Voice ID: [id number] Report ID: [id number]
--- NOTE | 2019-02-04 16:11 | PN ---
Incision slightly with oozing on the right side and in the middle. Area clean. Patient really still partly numb in the area. 5-6 new corinne placed. Bleeding stopped. More oozing than bleeding. Pr essure will be applied again. ALAINA/ZHANE Voice ID: [id number] Report ID: [id number]
[2019-02-04] MEDS ORDERED: D5LR 1,000 ML IV ONE (23:43)
[2019-02-05] MEDS: Oxycodone HCl/Acetaminophen 1 TAB TAB PO PRN ×2 (06:08→17:49)
--- NOTE | 2019-02-05 08:25 | PN ---
Postoperatively, patient is doing quite well. H and H with minimal change. Lochia is normal. Patisuzan nt has already ambulated. We will discontinue her Kwong and IV. She has no complaints or problems. We will begin p.o. intake. If all goes well, dismissal tomorrow. We have already gone over dismiss al instructions, but we will go over those again tomorrow. No post spinal block problems reported. ALAINA/ZHANE Voice ID: [id number] Report ID: [id number]
[2019-02-05] MEDS ORDERED: MAGNESIUM HYDROXIDE 8% 30 ML PO PRN (08:55)
[2019-02-06] MEDS: Oxycodone HCl/Acetaminophen 1 TAB TAB PO PRN ×2 (00:40→06:47)
[2019-02-06 07:29] VITALS: BP 121/61; TEMP 98.2
--- NOTE | 2019-02-06 22:32 | DS ---
Date of Discharge: 02/06/2019 A 33-year-old female, 3, para 2, for third section. Noted to be diabetic during her , 39 weeks' gestation. Underwent repeat section, spinal block anesthesia, deliver y of a 7-pound 15-ounce male . Initially vacuum suction and then forceps delivery. Estimated blood loss 1000 mL. Tubal ligation performed as lower uterine segment was thin, but almost inaccessi ble and higher. Incision had been made on the uterus to avoid bladder injury. Ancef for prophylaxis . Postoperatively did well, afebrile ambulating, voiding. Lochia is normal. Will see me in the off ice next week for staple removal. To report any temperature elevation of 100 degrees or greater, sev ere pain, heavy bleeding, or any other type of abnormalities. No post-spinal block problems. She harp s had her Tdap immunization. Final Diagnoses: 1.Term intrauterine at 39 weeks. 2.Repeat section, spinal block anesthesia, tubal ligation. ALAINA/ZHANE Voice ID: [id number] Report ID: [id number]
[2019-02-07 04:42] LABS: HBsAG Nonreactive (Nonreactive)
== END 2019-02-06 09:05 | disposition home or self-care (01) | DRG 788 ==
LOC: 2ND-WC 05:00
PROVIDERS: ADMIT Specialist; ATTEND Specialist
PROC: 10D00Z1 Extraction of Products of Conception, Low, Open Approach (ICD-10-PCS; principal; 2019-02-04 07:30)
DX: O34.211 Maternal care for low transverse scar from previous cesarean delivery (principal); O99.89 Other specified diseases and conditions complicating pregnancy, childbirth and the puerperium; O34.03 Maternal care for unspecified congenital malformation of uterus, third trimester; Q51.818 Other congenital malformations of uterus; O24.429 Gestational diabetes mellitus in childbirth, unspecified control; N73.6 Female pelvic peritoneal adhesions (postinfective); Z3A.39 39 weeks gestation of pregnancy; Z37.0 Single live birth
CPT/HCPCS: 36415; 81001; 82962; 85014; 85025; 85610; 85730; 86592; 86850; 86900; 86901; 87086; 87088; 87340; 88302; 88307; J0690; J2210; J2250; J2370; J2590; J2765; J3010